=== PATIENT | male | born 1990 ===

== ENCOUNTER 2019-08-31 15:07 | Emergency (ER) | payer SELFPAY ==
--- NOTE | 2019-08-31 15:15 | Emergency Department Report ---
ED CPR HPI - General Chief Complaint: Cardiac Arrest/CPR Stated Complaint: TRAUMATIC ARREST Time Seen by Provider: 08/31/19 15:07 Source: EMS Mode of arrival: Stretcher Limitations: Altered Mental Status, Physical Limitation - History of Present Illness Initial Comments: Patient is a 28-year-old male that presents emergency room with traumatic cardiac arrest. Patient brought in by EMS. Report received from EMS. Per EMS the patient fell approximately 30 feet directly onto his face. Patient has been unresponsive in asystole since the fall. Patient was intubated by EMS with an LMA and has bilateral breath sounds. Patient has a left lower extremity IO. Patient is given 2 rounds of epi by EMS. Chest compressions by EMS. MD Complaint: found unresponsive -: unknown Place: work Bystander CPR Performed: Yes AED Applied by Bystander/Motorcycle Racer: No Shock Advised: No Initial Findings in the Field: unresponsive, no respirations, no pulse Associated Symptoms: trauma Treatments Prior to Arrival: intubation, BMV, chest compressions, epinephrine mgs # ED Review of Systems ROS: Stated complaint: TRAUMATIC ARREST Other details as noted in HPI Comment: Unobtainable due to pts medical conditions ED Past Medical Hx - Past Medical History Previous Medical History?: No - Surgical History Past Surgical History?: No - Family History Family history: no significant - Social History Smoking Status: Unknown if ever smoked Substance Use Type: None ED Physical Exam - General Limitations: Altered Mental Status, Physical Limitation General appearance: other (unresponsive. ASIS swollen secondary to facial trauma. Brain matter and blood coming from the ears.) - Eye Eye exam: Present: periorbital swelling, other (pupils fixed and dilated.) - ENT ENT exam: Present: other (jaw deformity.) - Respiratory Respiratory exam: Present: other (bilateral breath sounds. Patient intubated with an LMA) - Cardiovascular Cardiovascular Exam: Present: other (asystole on the monitor and no pulse noted.) - GI/Abdominal GI/Abdominal exam: Present: soft - Rectal Rectal exam: Present: deferred - Extremities Exam Extremities exam: Present: other (due to to the bilateral upper extremities and the right lower extremity.) - Skin Skin exam: Present: warm, abrasion, ecchymosis ED Course - Reevaluation(s) Reevaluation #1: Patient arrived via EMS, initial evaluation done. Report received from EMS. Patient is getting adequate breath sounds with the LMA. Patient has multiple sites of trauma. Patient's face is extremely swollen. Brain matter and copious amounts of blood hemorrhaging from the patient's ears. No signs of life. 08/31/19 15:06 Reevaluation #2: Code ran in accordance with ACLS guidelines. No signs of life. Resuscitation efforts were terminated. No pulse. No respiratory effort. Family support will be given once the family arrives. 08/31/19 15:09 ED Medical Decision Making - Medical Decision Making Patient is a 28-year-old mellitus emergency room with traumatic cardiac arrest. Patient fell 30 feet directly onto his head and face. Patient had multiple areas of trauma. Patient's face was considerably swollen. Patient had brain matter coming out the top of his head as well as his ears. Patient had profuse amount of blood coming from his ears. Patient had multiple jaw fractures. Patient was intubated by EMS with an LMA. Patient code ran in accordance with ACLS and ACLS guidelines. Patient did not show any signs of life and resuscitation efforts were terminated. Family never came to the hospital. Patient was turned over to [facility]. Patient . - Differential Diagnosis cardiac arrest, traumatic arrest. Multiple traumatic injuries Critical Care Time: Yes Critical care time in (mins) excluding proc time.: 35 Critical care attestation.: If time is entered above; I have spent that time in minutes in the direct care of this critically ill patient, excluding procedure time. Critical Care Time: 35 minutes ED Disposition Clinical Impression: Traumatic cardiac arrest Fall Qualifiers: Encounter type: initial encounter Qualified Code(s): W19.XXXA - Unspecified fall, initial encounter Facial trauma Qualifiers: Encounter type: initial encounter Qualified Code(s): S09.93XA - Unspecified injury of face, initial encounter Disposition: DC-20 Is pt being admited?: No Does the pt Need Aspirin: No Condition: Undetermined Time of Disposition: 20:04
== END 2019-08-31 18:00 ==
LOC: ED 15:07
DX: S09.93XA Unspecified injury of face, initial encounter (principal); I46.9 Cardiac arrest, cause unspecified; W17.89XA Other fall from one level to another, initial encounter; Y93.89 Activity, other specified; Y92.89 Other specified places as the place of occurrence of the external cause; Y99.8 Other external cause status
CPT/HCPCS: 92950